=== PATIENT | female | born 1965 | race Caucasian/White ===

== ENCOUNTER → 2020-06-18 | Outpatient (CLI) | payer OTHER ==
[~2020-06-18] MED LIST: OMNICEF 300 MG300 MG PO; TESSALON PERLE100 MG PO; VENTOLIN HFA 66.7 GM INH
[2020-06-18 10:13] LABS: RED BLOOD COUNT 4.8 M/UL (4.00-5.10)
[2020-06-18 10:46] LABS: BUN/CREATININE RATIO 27 (0-10)
[2020-06-19 11:13] LABS: HBSAG SCREEN Negative (Negative); HEP B CORE AB, TOT Negative (Negative)
[2020-06-19 12:13] LABS: HCV AB <0.1 (0.0-0.9)
== END ==
LOC: LAB 09:44
PROVIDERS: Internal Medicine
DX: D89.89 Other specified disorders involving the immune mechanism, not elsewhere classified (principal); M25.50 Pain in unspecified joint; M35.00 Sjogren syndrome, unspecified; M32.9 Systemic lupus erythematosus, unspecified; Z92.29 Personal history of other drug therapy; Z79.899 Other long term (current) drug therapy
CPT/HCPCS: 80053; 81001; 82550; 82570; 84156; 85025; 85652; 86140; 86704; 86803; 87340

== ENCOUNTER → 2021-06-08 | Outpatient (CLI) | payer OTHER ==
[~2021-06-08] VITALS: Ht 162.6 cm; Wt 94.3 kg
== END ==
LOC: OPSV 12:00
DX: M32.9 Systemic lupus erythematosus, unspecified (principal); M35.00 Sjogren syndrome, unspecified
CPT/HCPCS: 96365; 96375; J0490; J1720; J7030

== ENCOUNTER → 2021-06-24 | Outpatient (CLI) | payer OTHER ==
[~2021-06-24] VITALS: Ht 162.6 cm; Wt 94.3 kg
== END ==
LOC: OPSV 12:21
DX: Z53.9 Procedure and treatment not carried out, unspecified reason (principal)
CPT/HCPCS: 96365; 96375; J0490; J1720; J7030

== ENCOUNTER → 2021-07-08 | Outpatient (CLI) | payer OTHER | LOC: OPSV 12:00 | DX: Z53.9 Procedure and treatment not carried out, unspecified reason (principal) | CPT/HCPCS: 96365; 96375; J0490; J1720; J7050 ==

== ENCOUNTER → 2021-08-05 | Outpatient (CLI) | payer OTHER ==
[~2021-08-05] VITALS: Ht 162.6 cm; Wt 94.3 kg
== END ==
LOC: OPSV 08:56
DX: Z53.9 Procedure and treatment not carried out, unspecified reason (principal)
CPT/HCPCS: 96365; 96375; J0490; J1720; J7030

== ENCOUNTER → 2021-09-02 | Outpatient (CLI) | payer OTHER ==
[~2021-09-02] VITALS: Ht 162.6 cm; Wt 94.3 kg
== END ==
LOC: OPSV 08:34
DX: M32.9 Systemic lupus erythematosus, unspecified (principal)
CPT/HCPCS: 96365; 96375; J0490; J1720; J7030

== ENCOUNTER → 2021-09-30 | Outpatient (CLI) | payer OTHER ==
[~2021-09-30] VITALS: Ht 162.6 cm; Wt 94.3 kg
== END ==
LOC: OPSV 08:49
DX: Z53.9 Procedure and treatment not carried out, unspecified reason (principal)
CPT/HCPCS: 96365; 96375; J0490; J1720; J7030

== ENCOUNTER → 2021-10-28 | Outpatient (CLI) | payer OTHER ==
[~2021-10-28] VITALS: Ht 162.6 cm; Wt 94.3 kg
== END ==
LOC: OPSV 06:50
DX: M32.9 Systemic lupus erythematosus, unspecified (principal); M35.00 Sjogren syndrome, unspecified
CPT/HCPCS: 96365; 96375; J0490; J1720; J7030

== ENCOUNTER → 2021-11-25 | Outpatient (CLI) | payer OTHER ==
[~2021-11-25] VITALS: Ht 162.6 cm; Wt 94.3 kg
== END ==
LOC: OPSV 07:35
DX: M32.9 Systemic lupus erythematosus, unspecified (principal)
CPT/HCPCS: 96365; 96375; J0490; J1720; J7030

== ENCOUNTER → 2021-12-23 | Outpatient (CLI) | payer OTHER ==
[~2021-12-23] VITALS: Ht 162.6 cm; Wt 94.3 kg
== END ==
LOC: OPSV 07:51
DX: M32.9 Systemic lupus erythematosus, unspecified (principal); M35.00 Sjogren syndrome, unspecified
CPT/HCPCS: 96365; 96375; J0490; J1720; J7030

== ENCOUNTER → 2022-01-20 | Outpatient (CLI) | payer OTHER ==
[~2022-01-20] VITALS: Ht 162.6 cm; Wt 94.3 kg
== END ==
LOC: OPSV 07:37
DX: M32.9 Systemic lupus erythematosus, unspecified (principal)
CPT/HCPCS: 96365; 96375; J0490; J1720; J7030

== ENCOUNTER 2022-01-28 18:37 | Emergency (ER) | payer OTHER ==
[2022-01-28 19:56] LABS: HEMOGLOBIN 14.2 gm/dl (12.3-15.3); RED BLOOD COUNT 4.55 M/UL (4.00-5.10); WHITE BLOOD COUNT 8.3 K/UL (4.5-11.0)
[2022-01-28 20:18] LABS: BUN/CREATININE RATIO 18 (0-10)
[2022-01-28] MEDS ORDERED: HYDROCODONE-AC1 EACH PO (21:53)
== END 2022-01-28 22:21 | disposition home or self-care (01) ==
LOC: ER1 18:37
PROVIDERS: Physician Assistant Medical
DX: R10.9 Unspecified abdominal pain (principal); R10.817 Generalized abdominal tenderness; F17.200 Nicotine dependence, unspecified, uncomplicated
CPT/HCPCS: 80053; 83605; 83690; 85025; 87040; 96374; 96375; 99284; J2270; J2405; Q9967

== ENCOUNTER → 2022-02-17 | Outpatient (CLI) | payer OTHER ==
[~2022-02-17] VITALS: Ht 162.6 cm; Wt 94.3 kg
[~2022-02-17] MED LIST changes: +HYDROCODONE-AC1 EACH PO
== END ==
LOC: OPSV 07:58
DX: M32.9 Systemic lupus erythematosus, unspecified (principal); M35.00 Sjogren syndrome, unspecified
CPT/HCPCS: 96365; 96375; J0490; J1720; J7030